=== PATIENT | female | born 1980 | race Caucasian/White ===

== ENCOUNTER 2020-07-24 11:36 | Emergency (ER) | payer BC, MEDICAID ==
--- NOTE | 2020-07-24 12:47 | ER Document Report ---
ED Medical Screen (RME) - General Chief Complaint: Anxiety Stated Complaint: ANXIETY Time Seen by Provider: 07/24/20 12:33 Primary Care Provider: MIRI CALDWELL MD [Primary Care Provider] - Follow up as needed - [facility] Notes: 07/24/20 12:42 39-year-old female with a history of pulmonary embolism in 2015 presents to the emergency room today for complaints of shortness of breath, racing heart, nausea, numbness in her bilateral hands and feet. She has noticed that when she is driving her new car the last couple of months that it becomes progressively worse however today was the worst with her symptoms. Patient is very emotional. She thinks she may have had a panic attack. Reports when she did have a pulmonary embolism back in 2005, she was on anticoagulant therapy for 6 months. LMP 07/08/2020. Patient thinks she may have just had a panic attack. I have greeted and performed a rapid initial assessment of this patient. A comprehensive ED assessment and evaluation of the patient, analysis of test results and completion of the medical decision making process will be conducted by additional ED providers. PHYSICAL EXAMINATION: GENERAL: Well-appearing, well-nourished and in no acute distress.Teary HEAD: Atraumatic, normocephalic. CV: s1, s2 tachycardia LUNGS: No respiratory distress Musculoskeletal: Normal range of motion NEUROLOGICAL: Normal speech, normal gait. SKIN: Warm, Dry, normal turgor, no rashes or lesions noted. Consulted with Dr. Moreau, ER supervising physician at 1246, he did advise to get a CTA of the chest due to high risk history The patient was evaluated during a global COVID-19 pandemic and that diagnosis was suspected/considered upon their initial presentation. Their evaluation, treatment and testing was consistent with current guidelines for patients who present with complaints or symptoms and may be related to COVID-19. 07/24/20 12:47 - Related Data Allergies/Adverse Reactions: No Known Allergies Allergy (Unverified 07/24/20 12:37) Past Medical History - Social History Chew tobacco use (# tins/day): No Frequency of alcohol use: None Drug Abuse: None Physical Exam - Vital signs Vitals: Pulse Resp BP Pulse Ox 125 H 19 128/86 H 100 07/24/20 11:44 07/24/20 11:44 07/24/20 11:44 07/24/20 11:44 Course - Vital Signs Vital signs: Temp Pulse Resp BP Pulse Ox 111 H 19 128/86 H 100 07/24/20 12:35 07/24/20 11:44 07/24/20 11:44 07/24/20 11:44 Doctor's Discharge - Discharge Referrals: MIRI CALDWELL MD [Primary Care Provider] - Follow up as needed
[2020-07-24 13:15] LABS: ABSOLUTE EOSINOPHILS # (AUTO) 0.1 10^3/uL (0.0-0.6); ABSOLUTE MONOCYTES (AUTO) 0.6 10^3/uL (0.1-1.4); ABSOLUTE NEUT (AUTO) 10.1 10^3/uL (1.7-8.2); BASOPHILS % (AUTO) 0.3 % (0-2); EOSINOPHILS % (AUTO) 0.4 % (0-6); HEMATOCRIT 42.6 % (36.0-47.0); HEMOGLOBIN 14.8 g/dL (12.0-15.5); LYMPHOCYTES % (AUTO) 15.6 % (13-45); MEAN CORPUSCULAR HGB CONC 34.7 g/dL (32.0-36.0); MEAN CORPUSCULAR VOLUME 87 fl (80-97); MONOCYTES % (AUTO) 4.8 % (3-13); PLATELET COUNT 319 10^3/uL (150-450); RED BLOOD COUNT 4.93 10^6/uL (3.72-5.28); SEGMENTED NEUTROPHILS % (AUTO) 78.9 % (42-78); TOTAL CELLS COUNTED % (AUTO) 100 %; WHITE BLOOD COUNT 12.8 10^3/uL (4.0-10.5)
[2020-07-24 13:18] LABS: APPEARANCE,URINE CLEAR; BILIRUBIN,URINE NEGATIVE (NEGATIVE); COLOR,URINE STRAW; GLUCOSE, URINE NEGATIVE (NEGATIVE); KETONES,URINE NEGATIVE (NEGATIVE); LEUKOCYTE ESTERASE,URINE NEGATIVE (NEGATIVE); NITRITE,URINE NEGATIVE (NEGATIVE); PROTEIN,URINE NEGATIVE (NEGATIVE); URINE SPECIFIC GRAVITY 1.006; UROBILINOGEN,URINE NEGATIVE mg/dL (<2.0)
[2020-07-24 13:33] LABS: ALBUMIN 4.5 g/dL (3.5-5.0); ALKALINE PHOSPHATASE 70 U/L (38-126); ANION GAP 12 (5-19); ASPARTATE AMINO TRANSFERASE 26 U/L (14-36); BILIRUBIN,DIRECT 0.2 mg/dL (0.0-0.4); BILIRUBIN,TOTAL 0.4 mg/dL (0.2-1.3); BLOOD UREA NITROGEN 9 mg/dL (7-20); CALCIUM 9.7 mg/dL (8.4-10.2); CARBON DIOXIDE 24 mmol/L (22-30); CHLORIDE 107 mmol/L (98-107); GLUCOSE 125 mg/dL (75-110); POTASSIUM 4.4 mmol/L (3.6-5.0); TOTAL PROTEIN 7.5 g/dL (6.3-8.2)
--- NOTE | 2020-07-24 13:38 | RADIOLOGY REPORT (SQ) ---
EXAM DESCRIPTION: CHEST SINGLE VIEW IMAGES COMPLETED DATE/TIME: 07/24/2020 1:30 pm REASON FOR STUDY: sob COMPARISON: None. EXAM PARAMETERS: NUMBER OF VIEWS: One view. TECHNIQUE: Single frontal radiographic view of the chest acquired. RADIATION DOSE: NA LIMITATIONS: None. FINDINGS: LUNGS AND PLEURA: No opacities, masses or pneumothorax. No pleural effusion. MEDIASTINUM AND HILAR STRUCTURES: No masses. Contour normal. HEART AND VASCULAR STRUCTURES: Heart normal in size. Normal vasculature. BONES: No acute findings. HARDWARE: None in the chest. OTHER: No other significant finding. IMPRESSION: NO ACUTE RADIOGRAPHIC FINDING IN THE CHEST. TECHNICAL DOCUMENTATION: JOB ID: [id number] 2010 [employer]- All Rights Reserved Reading location - IP/workstation name: [id number]
[2020-07-24] MEDS ORDERED: LORAZEPAM 1 MG TABLET PO ONE (14:05)
--- NOTE | 2020-07-24 14:07 | ER Document Report ---
ED Respiratory Problem - General Chief Complaint: Shortness Of Breath Stated Complaint: ANXIETY Time Seen by Provider: 07/24/20 12:33 Primary Care Provider: MIRI CALDWELL MD [EMERITUS] - Follow up as needed Notes: CHIEF COMPLAINT: Possible panic attack HPI: 39-year-old female presenting for possible panic attack. Has had panic attacks previously none this severe. Was driving in the car she believes it is related to the size of her vehicle began feeling shaky, short of breath, numb in hands and feet. Pulled over to the side of the road then came into the emergency department still with symptoms currently. Patient with a prior history of a pulmonary embolus so states that anytime she has any type of sy mptoms like this she worries that it is another blood clot. She is not on blood thinners ROS: See HPI - all other systems were reviewed and are otherwise negative Constitutional: no fever Eyes: no drainage, no blurred vision ENT: no runny nose, no sore throat Cardiovascular: + chest pain Resp: + SOB, no cough GI: no vomiting, no diarrhea, no abdominal pain : no dysuria Integumentary: no rash Allergy: no hives Musculoskeletal: no extremity pain or swelling Neurological: _+ numbness/tingling, no weakness MEDICATIONS: I agree with the patient medications as charted by the RN. ALLERGIES: I agree with the allergies as charted by the RN. PAST MEDICAL HISTORY/PAST SURGICAL HISTORY: Reviewed and agree as charted by RN. SOCIAL HISTORY: Reviewed and agree as charted by RN. FAMILY HISTORY: No significant familial comorbid conditions directly related to patient complaint EXAM: Reviewed vital signs as charted by RN. CONSTITUTIONAL: Alert and oriented and responds appropriately to questions. Well-appearing; well-nourished HEAD: Normocephalic; atraumatic EYES: PERRL; Conjunctivae clear, sclerae non-icteric ENT: normal nose; no rhinorrhea; moist mucous membranes; pharynx without lesions noted, no uvula edema or deviation, no tonsillar hypertrophy, phonation normal NECK: Supple without meningismus; non-tender; no cervical lymphadenopathy, no masses CARD: Mildly tachycardic; no murmurs, no clicks, no rubs, no gallops; symmetric distal pulses RESP: Normal chest excursion without splinting or tachypnea; breath sounds clear and equal bilaterally; no wheezes, no rhonchi, no rales, pulse oximetry 97% on room air not hypoxic ABD/GI: Normal bowel sounds; non-distended; soft, non-tender, no rebound, no guarding; no palpable organomegaly or masses. BACK: The back appears normal and is non-tender to palpation, there is no CVA tenderness EXT: Normal ROM in all joints; non-tender to palpation; no cyanosis, no effusions, no edema SKIN: Normal color for age and race; warm; dry; good turgor; no acute lesions noted NEURO: Moves all extremities equally; Motor and sensory function intact PSYCH: The patient's mood and manner are anxious and tearful. Grooming and personal hygiene are appropriate. MDM: 39-year-old female presenting for possible panic attack. Hyperventilating crying and moderately distressed and anxious in the room. Will give Ativan. Patient initially seen through triage process CTA ordered given PE history with I believe is appropriate. - Related Data Allergies/Adverse Reactions: No Known Allergies Allergy (Unverified 07/24/20 12:37) Past Medical History - Social History Smoking Status: Current Every Day Smoker Chew tobacco use (# tins/day): No Frequency of alcohol use: None Drug Abuse: None Family History: Reviewed & Not Pertinent Physical Exam - Vital signs Vitals: Pulse Resp BP Pulse Ox 125 H 19 128/86 H 100 07/24/20 11:44 07/24/20 11:44 07/24/20 11:44 07/24/20 11:44 Course - Re-evaluation Re-evalutation: 07/24/20 15:24 CT imaging does not show any acute findings patient had a panic attack she feels better after Ativan. I spoke to the psychiatric team and the patient. I will place a consult for them to come and see the patient and provide resources for her per her request 07/24/20 15:29 EKG shows a sinus tachycardia with a heart rate of 110, borderline T wave f lattening in the inferior leads although the EKG is somewhat poor in that area. IL 156 QT 328 QTC 444. Interpreted by emergency department physicians. - Vital Signs Vital signs: Temp Pulse Resp BP Pulse Ox 97.8 F 84 17 127/82 H 99 07/24/20 14:21 07/24/20 14:21 07/24/20 14:21 07/24/20 14:21 07/24/20 14:21 - Laboratory Results Result Diagrams: 07/24/20 12:55 07/24/20 12:55 Laboratory Results Interpreted: 07/24/20 07/24/20 07/24/20 12:55 12:55 12:55 WBC 12.8 H Absolute Neuts (auto) 10.1 H Seg Neutrophils % 78.9 H Glucose 125 H Urine Blood SMALL H Critical Laboratory Results Reviewed: No Critical Results - Radiology Results Critical Radiology Results Reviewed: No Critical Results Discharge - Discharge Clinical Impression: Panic attack Condition: Stable Disposition: HOME, SELF-CARE Additional Instructions: Follow-up with both your primary care provider and the resources provided by the psychiatric team for further evaluation and management of panic attacks. Take the Vistaril as needed at the start of a panic attack to help calm you. Watch for sedation with this medication Prescriptions: Hydroxyzine Pamoate [Vistaril 25 mg Capsule] 25 mg PO Q8HP PRN #15 capsule PRN Reason: Anxiety Referrals: MIRI CALDWELL MD [EMERITUS] - Follow up as needed
--- NOTE | 2020-07-24 15:19 | RADIOLOGY REPORT (SQ) ---
EXAM DESCRIPTION: CTA CHEST IMAGES COMPLETED DATE/TIME: 07/24/2020 3:09 pm REASON FOR STUDY: SOB, hx of PE in 2006 COMPARISON: None. TECHNIQUE: CT scan of the chest performed using helical scanning technique with dynamic intravenous contrast injection. Images reviewed with lung, soft tissue and bone windows. Reconstructed coronal and sagittal MPR images reviewed. Additional 3 dimensional post-processing performed to develop Maximal Intensity Projection images ([place] P). All images stored on PACS. All CT scanners at this facility use dose modulation, iterative reconstruction, and/or weight based d osing when appropriate to reduce radiation dose to as low as reasonably achievable (ALARA). [facility]: Dose Right [facility]: CareDose [facility]: Dose Right [facility]: Teradose 4D [facility]: [employer] CONTRAST TYPE AND DOSE: contrast/concentration: Isovue 350.00 mmol/ml; Total Contrast Delivered: 63. 0 ml; Total Saline Delivered: 58.9 ml Contrast bolus adequate for pulmonary arteries and aorta. RENAL FUNCTION: BUN 9 creatinine 0.64. RADIATION DOSE: CT Rad equipment meets quality standard of care and radiation dose reduction techniq ues were employed. CTDIvol: 18.2 - 19.8 mGy. DLP: 638 mGy-cm. . LIMITATIONS: None. FINDINGS: LUNGS AND PLEURA: No masses, infiltrates, or pneumothorax. No pleural effusions or pleura l calcifications. AORTA AND GREAT VESSELS: No aneurysm. No dissection. HEART: No pericardial effusion. No significant coronary artery calcifications. PULMONARY ARTERIES: No emboli visualized in the main pulmonary arteries or the segmental branches. HILAR AND MEDIASTINAL STRUCTURES: No identified masses or abnormal nodes. HARDWARE: None in the chest. UPPER ABDOMEN: No significant findings. Limited exam. THYROID AND OTHER SOFT TISSUES: No masses. No adenopathy. BONES: No acute or significant finding. 3D MIPS: Confirm above findings. OTHER: No other significant finding. IMPRESSION: NORMAL CTA OF THE CHEST. NO PULMONARY EMBOLI. COMMENT: Quality ID # [id number]: Final reports with documentation of one or more dose reduction techniques (e.g., Automated exposure control, adjustment of the mA and/or kV according to patient size, use of iterative reconstruction technique) TECHNICAL DOCUMENTATION: JOB ID: [id number] 2010 [employer]- All Rights Reserved Reading location - IP/workstation name: [id number]
[2020-07-24 15:34] VITALS: BP 124/81
--- NOTE | 2020-07-24 16:42 | PSYCHOLOGICAL NOTE ---
Psych Note - Psych Note Date seen by psych provider: 07/24/20 Time seen by psych provider: 15:56 Psych Note: Reason for Consult: anxiety [id number] Consent Permissions: Trinidad hubbard, in the room as well Patient is a 39 year old female who presented to the [facility] ED today via POV. She came to the ED for medical concerns, but expressed anxiety as well. Patient denies suicidal ideation, plan, and intent. She reports anxiety for the past several months with intermittent panic attacks. She reports today she was driving her car and needed to veneer puller due to having a panic attack. Patient identifies that last summer she got a new car and traded her Honda for a [employer]. She states her daughter is 16 and started driving at that time. Patient reports since then she has become more anxious each time she is in the car, driving or riding passenger. She states she has never been in a car accident and nobody close to her has ever been in a car accident. She denies mental health history to include suicide attempts and outpatient history. Patient states while in the ED she was given Ativan and it helped her calm down and she is interested in getting something she can take when her anxiety gets out of control. She reports no known mental health history. Collateral: haydee Abdi, was in the room. Reported this all started with the new car last summer. Reports patient is very anxious whether she is driving or not while in the car. No concerns for safety of patient. Patient was alert and oriented to self, person, place, time and situation. Mood was anxious with congruent affect. She denies current suicidal and homicidal ideation, plan, and intent. Patient did not appear to be responding to internal stimuli as evidenced by fair eye contact and answering questions appropriately when addressed. Thought processes are linear and organized. Conversational speech was within normal limits for rate, tone and prosody. Intellectual abilities are estimated to be average. Insight, judgment, and impulse control were fair as evidenced by coming to the ED when her anxiety felt out of control. Patient engages appropriately. She demonstrates future forward goal oriented thinking as she inquires for assistance to manage her anxiety as it has slowly gotten worse. Clinical Presentation: anxiety IVC Criteria per [place] GS 122C Dangerous to others Within the relevant past the individual No has inflicted or attempted to inflict or threatened to inflict serious bodily harm on another AND No that there is a reasonable probability that this conduct will be repeated. OR No has acted in such a way as to create a substantial risk of serious bodily harm to another AND No that there is a reasonable probability that this conduct will be repeated. OR No has engaged in extreme destruction of property AND NO that there is a reasonable probability that this conduct will be repeated. Previous episodes of dangerousness to others, when applicable, may be considered when determining reasonable probability of future dangerous conduct. Clear, cogent, and convincing evidence that an individual has committed a homicide in the relevant past is prima facie evidence of dangerousness to others. Dangerous to self Within the relevant past the individual has done any of the following: acted in such a way as to show ALL of the following: No The individual would be unable without care, supervision, and the continued assistance of others not otherwise available, to exercise self- control, judgment, and discretion in the conduct of the individual's daily responsibilities and social relations or to satisfy the individual's need for nourishment, personal or medical care, half-way, or self-protection and safety. AND No There is a reasonable probability of the individual suffering serious physical debilitation within the near future unless adequate treatment is given. A showing of behavior that is grossly irrational, of actions that the individual is unable to control, of behavior that is grossly inappropriate to the situation, or of other evidence of severely impaired insight and judgment shall create a prima facie inference that the individual is unable to care for himself or herself. OR No has attempted suicide or threatened suicide AND No that there is a reasonable probability of suicide unless adequate treatment is given OR No has mutilated himself or herself or attempted to mutilate himself or herself AND No that there is a reasonable probability of serious self-mutilation unless adequate treatment is given. NOTE: Previous episodes of dangerousness to self, when applicable, may be consi dered when determining reasonable probability of physical debilitation, suicide, or self-mutilation. Impression\plan: Patient is cleared from psychiatric services. Patient came into the ED for medical concerns, but expressed interest in resources for anxiety. She denies suicidal ideation, plan, and intent. She has no mental health history. Patient states she has had anxiety for several months and slowly over time, it has gotten worse. She reports driving today when she began to have a panic attack in which she pulled over off the side of the road. Patient is interested in a prn medication to assist with anxiety. She reports no family history of mental health. Patient is recommended to being outpatient services and start with therapy. She will benefit from learning how to identify her triggers and learn helpful and healthy coping skills for anxiety management. Without any history of therapy, medications, or mental health, it is recommended to begin with therapy to learn appropriate skills prior to starting ongoing medications. After getting established with an outpatient provider for therapy, it is appropriate to request medication management if you feel therapy is not as effective, over time. She was recommended to engage in therapy a couple of months and allow time to build on skills prior to attempting medication. Patient was given a community resource sheet for outpatient providers in the area. Clinician highlighted the providers who accept self-pay patients on the sheet and also discussed mobile crisis. She was recommended to utilize mobile crisis or return to the ED if necessary. Dr. Saravia was consulted to care management of this patient; attending physicians in agreement with recommendations and disposition.
--- NOTE | 2020-07-24 18:31 | EKG REPORT ---
SEVERITY:- BORDERLINE ECG - SINUS TACHYCARDIA BORDERLINE T ABNORMALITIES, INFERIOR LEADS : Confirmed by: Timothy Caldwell MD 24-Jul-2020 18:30:28
== END 2020-07-24 16:16 | disposition home or self-care (01) ==
LOC: ER 11:36
DX: F41.0 Panic disorder [episodic paroxysmal anxiety] (principal); R06.02 Shortness of breath; R20.0 Anesthesia of skin; R07.9 Chest pain, unspecified; R00.0 Tachycardia, unspecified; F17.200 Nicotine dependence, unspecified, uncomplicated; Z86.711 Personal history of pulmonary embolism
CPT/HCPCS: 36415; 71045; 71275; 80053; 81001; 84443; 84484; 84702; 85025; 93005; 93010; 99285